=== PATIENT | female | born 1970 | race Caucasian/White ===

== ENCOUNTER 2022-11-19 14:26 | Outpatient (CLI) | payer OTHER, SELFPAY | END 2022-11-19 14:27 | disposition home or self-care (01) | LOC: NFLDREF 14:27 | PROVIDERS: Visit Provider Obstetrics & Gynecology | DX: N93.9 Abnormal uterine and vaginal bleeding, unspecified (principal) | CPT/HCPCS: 80053; J1100; J1885; J2250; J2405; J2704; J3010 ==

== ENCOUNTER 2022-11-20 09:18 | Day surgery (SDC) | payer OTHER, SELFPAY ==
[2022-11-20 10:01] LABS: Basophils Absolute Auto 0.04 K/uL (0.00-0.30); Basophils Percent Auto 0.7 % (0.0-3.0); Eosinophils Absolute Auto 0.17 K/uL (0.00-0.50); Eosinophils Percent Auto 3.1 % (0.0-7.0); Hematocrit 38.2 % (33.0-51.0); Hemoglobin* 12.9 gm/dL (12.0-16.0); Lymphocytes Absolute Auto 1.46 K/uL (0.90-2.90); Mean Corpuscular HGB Conc 34 gm/dL (32-36); Mean Corpuscular Hemoglobin 32 pg (26-34); Mean Corpuscular Volume 95 fL (80-100); Neutrophils Absolute Auto 3.19 K/uL (1.7-7.0); Neutrophils Percent Auto 59.2 % (42.0-72.0); Platelet Count* 410 K/uL (140-440); RDW Coefficient of Variation % 12.6 % (11.5-15.5); Red Blood Count 4.04 m/uL (4.00-5.20)
[2022-11-20 10:02] LABS: Slide Review Reflex No
[2022-11-20] MEDS: LACTATED RINGERS 1000 ML 1,000 ML 100 ML IV (10:15)
[2022-11-20] MEDS: SODIUM CHLORIDE 0.9 % (FLUSH) 10 ML SYRINGE IVF (10:15)
[2022-11-20 10:16] VITALS: BP 110/58; PULSE 64; RESP 16; TEMP 36.5; O2SAT 100; BMI 25.0
--- NOTE | 2022-11-20 11:11 | W.ANESCHARGE ---
Anesthesia Charges Start Date/Time Anesthesia Start Date: 11/20/22 Anesthesia Start Time: 12:06 Stop Date/Time Anesthesia Stop Date: 11/20/22 Anesthesia Stop Time: 12:58
[2022-11-20] MEDS: BUPIVACAINE 0.25% 30 ML 20 ML INJECTION (12:42)
[2022-11-20] MEDS: LIDOCAINE 1% MDV 20 ML INJECTION (12:42)
[2022-11-20 12:58] VITALS: BP 127/72; PULSE 62; RESP 16; TEMP 36.2; O2SAT 99
--- NOTE | 2022-11-20 13:01 | W.PM.GYNPROC ---
Procedure Note Time Seen by Provider: 13:01 Date of procedure: 11/20/22 Pre-op diagnosis: Heavy and prolonged menstrual bleeding, history bicornuate uterus Post-op diagnosis: same Procedure: Hysteroscopy, D&C Anesthesia: MAC and local (Paracervical block) Complications: None Surgeon: Taryn Lehman MD Estimated blood loss (mL): 10 Pathology: specimen obtained, sent to pathology Condition: stable Disposition: PACU Findings: Bicornuate uterus: Septum extended 3 cm between the uterine horns. Sound length 11 cm on each side, 8 cm in the midline. Tubal ostia difficult to visualize bilaterally. Moderately thick endometrial tissue in both cornua. Procedure Description: After obtaining informed consent, the patient was taken to the operating room where she received monitored anesthesia care. She was prepared and draped in the normal sterile fashion, in the dorsal lithotomy position. An open-sided bivalve speculum was introduced into the vagina and the cervix visualized. The anterior lip of the cervix was grasped with a single-tooth tenaculum for traction. A paracervical block was then administered using a total of 20 mL of a 50/50 mixture of 0.25% Marcaine and 1% lidocaine plain. The uterus was gently sounded. Sound length was initially thought to be 8 cm. The cervix was gently dilated to a #6 Hegar dilator. A hysteroscope was then advanced under direct visualization through the cervix into the uterine cavity. Sterile normal saline was used as distending medium. The uterine cavity was carefully inspected with the findings noted above. Pictures were taken for documentation purposes. The TruClear morcellator was inserted through the operating channel in the hysteroscope. The morcellator was used to remove thickened endometrial lining on both halves of the uterus. The septum between was quite firm. The hysteroscope was then removed. The endometrial lining was then sharply curetted, making sure to obtain samples and tissue from both uterine horns. A gritty feel was felt on both sides. Initially, Mirena IUD insertion was planned as well, but due to the significant uterine septum and bicornuate shape of the uterus, this was not done, as the device would not have deployed properly. The tenaculum was removed. There was little bleeding from the tenaculum site, which was controlled with direct pressure sponge stick. All instruments were then removed. The patient tolerated the procedure well. Sponge, lap, needle, and instrument counts reported as correct x2. The patient was taken to the recovery room awake in a stable condition.
--- NOTE | 2022-11-20 13:14 | W.ANESCHARGE ---
Anesthesia Charges Start Date/Time Anesthesia Start Date: 11/20/22 Anesthesia Start Time: 12:06 Stop Date/Time Anesthesia Stop Date: 11/20/22 Anesthesia Stop Time: 12:58
[2022-11-20 13:15] VITALS: BP 125/84; PULSE 62; RESP 16; O2SAT 99
[2022-11-20 13:30] VITALS: BP 122/74; PULSE 62; RESP 16; O2SAT 99
[2022-11-20 13:45] VITALS: BP 125/74; PULSE 65; RESP 16; O2SAT 99
== END 2022-11-20 14:19 | disposition home or self-care (01) ==
PROVIDERS: Obstetrics & Gynecology; Visit Provider Obstetrics & Gynecology
PROC: 0UDB8ZZ Extraction of Endometrium, Via Natural or Artificial Opening Endoscopic (ICD-10-PCS; CPT 58558; principal; 2022-11-20 10:45)
DX: N92.0 Excessive and frequent menstruation with regular cycle (principal); Q51.3 Bicornate uterus
CPT/HCPCS: 58558; 00952; 36415; 85025; 88305; J0665; J7120

== ENCOUNTER 2023-03-06 08:03 | Day surgery (SDC) | payer OTHER, SELFPAY ==
[2023-03-06] VITALS (21 sets, daily range): BP systolic 94–133; BP diastolic 42–74; PULSE 45–83; RESP 15–20; TEMP 21–37.1; O2SAT 96–100; BMI 26.3
[2023-03-06 08:39] LABS: Hemoglobin* 15.2 gm/dL (12.0-16.0)
[2023-03-06 08:42] LABS: Ur HCG Qualitative* Negative (Negative)
[2023-03-06 08:54] LABS: Creatinine* 0.8 mg/dL (0.5-1.5); Est. Creatinine Clearance* 77.88; Estimated Glomerular Filt Rate 89 ml/min
[2023-03-06] MEDS: LACTATED RINGERS 1000 ML 1,000 ML 100 ML IV ×3 (09:00→13:16)
--- NOTE | 2023-03-06 09:15 | W.PM.H&PU ---
History & Physical Update History & Physical Update H&P Reviewed and patient assessed: No changes noted
--- NOTE | 2023-03-06 09:16 | P.GYNPRC_ITS ---
<Statement entered by Kim Diego MD - 07/08/23 08:00> Another document completed, this one should be deleted. Procedure Note Date of procedure: 03/06/23
--- NOTE | 2023-03-06 09:16 | W.PM.GYNPROC ---
Procedure Note Date of procedure: 03/06/23
[2023-03-06] MEDS: CEFAZOLIN 2 GM INJ IVP (11:08)
--- NOTE | 2023-03-06 11:35 | W.PM.NB ---
Nerve Block Nerve Block Time Seen by Provider: 10:42 Date Seen: 03/06/23 Type of block requested by surgeon for post-operative analgesia: TAP Side: bilateral Time out performed: Yes Verification of patient name: Yes Verification of date of : Yes Site marking: site marked Name of person performing procedure: Georgette Trevino Continuous monitoring Was continuous monitoring of O2 sat, B/P, cardiac technologist, recorded every 15 minutes?: Yes Procedure Checklist: sterile prep, needles and gloves Ultrasound guided. Images saved: Yes Medications given in 5ml increments after negative aspiration: Marcaine %: 0.25 mL: 30 Needle gauge: 21 and Exparel mL: 10 Patient tolerated procedure well: Yes Block Charges Block Charge (with Pro Fee): TAP Bilateral Use of Ultrasound Machine for Block: Yes- US Guidance/pain block
--- NOTE | 2023-03-06 14:29 | W.ANESCHARGE ---
Anesthesia Charges Start Date/Time Anesthesia Start Date: 03/06/23 Anesthesia Start Time: 10:33 Stop Date/Time Anesthesia Stop Date: 03/06/23 Anesthesia Stop Time: 14:28
--- NOTE | 2023-03-06 14:30 | W.PM.GYNPROC ---
Procedure Note Date of procedure: 03/06/23 Pre-op diagnosis: Abnormal uterine bleeding, bicornuate uterus Post-op diagnosis: same Procedure: Total laparoscopic hysterectomy, bilateral fimbriectomy, cystoscopy. Excision of anterior abdominal wall sebaceous cyst. Anesthesia: GETA Complications: None Surgeon: Katt Diego MD Dielectric Embossing Machine Operator: Angela Salas Estimated blood loss (mL): 50 IV fluids (mL): 2,000 Urine Output (mL): 200 Pathology: specimen obtained, sent to pathology (Uterus and bilteral fimbriae.) Condition: stable Disposition: floor Findings: Anterior abdominal wall on the left lower abdominal quadrant a 5mm in size skin lesion that looked like an open comedo. Normal external genitalia, bimanual exam, large uterus of about 14cm, retroverted, movable. Speculum exam: Cervix w/o abnormal discharge or gross lesions. Intra abdominal:No gross lesions, grossly normal liver, gallbladder, stomach. Fine omental adhesion to the anterior peritoneal wall close to the sigmoid colon. Uterus with a heart shape fundus, of about 14cm. Evidence of surgical sterilization. Right simple ovarian cyst of about 2cm, otherwise grossly normal ovary. Grossly normal bilateral fimbriae, small atrophic left ovary. Cystoscopy: Intact bladder mucosa, no evidence of foreign body or lesions. Normal bilateral ureteral jets. Procedure Description: DESCRIPTION OF PROCEDURE: After obtaining informed consent, the patient was taken to the operating room where general anesthesia was obtained without difficulty. At preop area patient expressed desire for to me evaluate and drain a sebaceous cyst that she has recurrently drained in the past, this was located at the left lower anterior abdominal wall skin, about 5mm in size and looked like an open comedo. This did not look infected, no surrounding erythema. I discussed with patient that I could evaluate for drainage once she was under anesthesia at the OR. Prior to prepping the skin this area was evaluated and I was able to drain manually, sebaceous discharge noted. This are was further cleansed with Betadine and utilizing a small hemostat the capsule of the cyst was almost completely removed. No bleeding encountered I wanted to re evaluate are at the end of surgical intervention. She was prepared and draped in the normal sterile fashion in the low dorsal lithotomy position. A Santos catheter was inserted into the bladder and left to gravity drainage. A medium Graves open-sided speculum was introduced into the vagina. The cervix was visualized and grasped along its anterior lip with a single-tooth tenaculum. Cervical dilation performed with Hegar dilators up to about 6mm. The uterus was gently sounded. Sound length was found to be 8 cm. I then placed a Medium VCare uterine manipulator. The tenaculum and speculum were removed. The green VCare cup was digitally pressed up against the cervix and then cinched in place with the blue accessory cup. I then changed gloves and my attention was turned to the abdomen. The inferior aspect of the umbilical fold was injected with 0.25% Marcaine plain. A 5 mm vertical incision was then made within the umbilical fold using a scalpel. A direct entry technique was used, a 5 mm laparoscopic port with CO2 gas set at 5mmHg was introduced under direct visualization. The trocar was removed leaving the sleeve in place. The CO2 gas flow was turned to high flow to achieve pneumoperitoneum. The 5 mm laparoscope was used then to carefully inspect the abdomen and pelvis with findings noted above. Pictures were taken for documentation purposes. The patient was placed in Trendelenburg positioning. Two additional 5mm ports were placed in the right and left lower quadrants under direct visualization after first anesthetizing the skin and fascia with 0.25% Marcaine plain. Once the ports were in place, the VCare manipulator was used to elevate the uterus. The ureters were identified bilaterally along their courses in the pelvic sidewalls. The VCare cup was visualized and palpated with a blunt grasper. The left round ligament was sealed in a wide swath and transected with the Thunderbeat, excellent hemostasis was obtained. The left utero ovarian ligament was also grasped, coagulated and cut utilizing the Thunderbeat device. The broad ligament was then opened using the Thunderbeat anteriorly and posteriorly along the cervix from the left within the confines of the VCare cup. Pressure was maintained on the uterine manipulator the whole time. The left uterine vessels were sealed in a wide swath and transected with the Thunderbeat, then the tissues over the VCare cup edge on the left side were thinned using the Thunderbeat to the midline posteriorly and anteriorly so that the fascial layer could be identified. The right round ligament was then sealed in a wide swath and transected with the Thunderbeat, excellent hemostasis was obtained. At this time the uterus was more floppy and difficult to manipulate with uterine manipulator alone. Decision was made to place a port at the level of the umbilicus. An additional 5mm port was placed on the abdomen at the level of the umbilicus to the left of umbilicus, about 3-4 cm lateral from umbilicus under direct visualization. A laparoscopic tenaculum was introduced under direct visualization and utilized to grasp the uterine fundus to aid in uterine manipulation. The right broad ligament was then opened using the Thunderbeat anteriorly and posteriorly along the cervix from the right within the confines of the VCare cup. Pressure was maintained on the uterine manipulator the whole time. The right uterine vessels were sealed in a wide swath and transected with the Thunderbeat, then the tissues over the VCare cup edge on the right side were thinned using the Thunderbeat to the midline posteriorly and anteriorly so that the fascial layer could be identified. Once an adequate dissection was made circumferentially, the Thunderbeat device was utilized to dissect to identify the green Vcare cup, then a laparoscopic monopolar paddle was introduced under direct visualization and tissue was dissected circumferentially around the cervix within the groove of the VCare cup. Once the dissection was completed circumferentially, I turned my attention to the vagina. I was able to get the cervix and part of the uterine body through the vagina, I then removed the uterine manipulator. A weighted speculum was placed, a large [place] retractor was utilized to protect the anterior vaginal wall. Utilizing tenaculum and [place] forceps the cervix, uterine body were grasped and utilizing a scalpel and Peterson scissors the uterus was sequentially cut from the core until I was able to move and grasp the right uterine fundus and the uterus was then removed vaginally. Uterine weight: 339g. A glove with one lap was then introduced vaginally for maintenance of pneumoperitoneum. I then turned my attention again to the abdomen, after changing gloves. The left lower abdominal quadrant incision was then extended to place an 11mm port. The vaginal cuff was reapproximated in a running fashion with a V-Loc suture starting from the right side and running across to the left and then back to the midline where the suture was cut flush with the tissues. The pelvis was copiously irrigated and hemostasis visualized. Preparations were then made for cystoscopy. Methylene blue was administered intravenously along with the IV fluids. Then the right fimbriae was identified, grasped and clamped, coagulated and cut utilizing Thunderbeat device. Same procedure performed on the left side. Bilateral fimbrial ends sent to pathology with uterus. The Santos catheter was removed. The patient was flattened out. Cystoscopy was performed using sterile normal saline as distending medium. The bladder was carefully inspected and noted to be free of filling defects or suture material. Furosemide 20mg IV given. Both ureteral orifices were easily visualized and methylene blue tinged urine jets were noted from both sides. The cystoscope was then removed. The Santos catheter was replaced into the bladder. Attention was once again turned to the abdomen. The abdomen and pelvis were again irrigated and inspected for hemostasis. Ramona placed to vaginal cuff for additional hemostasis. Attention was then placed to the 11mm port site and under direct visualization using a Ken-Glory system the fascia was closed. All instruments were then removed under direct visualization. Pneumoperitoneum was allowed to escape. The left lower abdominal quadrant incision were the previously described open comedo was drained was re inspected and pieces of remaining capsule from cyst were removed. The subcutaneous tissue at this incision was re approximated with Vicryl 3-0. The skin at all port sites was closed in a subcuticular fashion with 4-0 Monocryl. LiquiBand was then placed over the incisions. The patient tolerated the procedure well. Sponge, lap, needle, and instrument counts were reported as correct x2. The patient was taken to the recovery room awake and in stable condition. She did receive 2 g of IV Ancef preoperatively. PATHOLOGY SPECIMEN(S): Uterus and bilateral fimbriae. A debrief was completed at the end of procedure to clarify: name of procedure, pathology specimens, EBL and to clarify questions or concerns, there were none.
--- NOTE | 2023-03-06 16:14 | PC.NURSE ---
Heart rate ranging from 43-49 bpm after surgery. Blood pressure and other vitals within normal limits. Stephen De Leon SOLVENT PROCESS EXTRACTOR OPERATOR and Georgette Shay SOLVENT PROCESS EXTRACTOR OPERATOR notified, no further orders.
[2023-03-06] MEDS: KETOROLAC 30 MG/ML inj IVP (20:13)
[2023-03-06] MEDS: ACETAMINOPHEN 500 MG TABLET 1000 MG PO (23:30)
[2023-03-07] MEDS: KETOROLAC 30 MG/ML inj IVP (02:19)
[2023-03-07 02:26] VITALS: BP 105/56; PULSE 70; TEMP 37; O2SAT 95
[2023-03-07 05:32] VITALS: BP 102/63; PULSE 70; RESP 17; TEMP 36.8; O2SAT 95
[2023-03-07] MEDS: ACETAMINOPHEN 500 MG TABLET 1000 MG PO ×2 (05:35→11:22)
[2023-03-07 07:34] LABS: Hemoglobin* 13.8 gm/dL (12.0-16.0)
[2023-03-07] MEDS: IBUPROFEN 600 MG TABLET PO ×2 (07:54→14:07)
[2023-03-07 07:55] VITALS: BP 104/63; PULSE 67; RESP 16; TEMP 36.7
[2023-03-07] MEDS: DOCUSATE SODIUM 100 MG CAPSULE PO (07:56)
[2023-03-07 07:57] LABS: Creatinine* 0.8 mg/dL (0.5-1.5); Est. Creatinine Clearance* 77.88; Estimated Glomerular Filt Rate 89 ml/min
--- NOTE | 2023-03-07 08:47 | PM.GYNDS1 ---
DS: Providers Provider Time Seen by Provider: 08:15 Date Seen: 03/07/23 Date of admission: 03/06/2023 Primary care physician: Not a Local Provider Admitting Clinician: Kim Diego MD Attending Physician on discharge: Taryn Lehman MD Date of Discharge: 03/07/23 DS: Diagnosis Discharge Diagnosis (1) S/P hysterectomy: Status: Acute [facility]-Discharge Summary Hospital Course Hospital Course Narrative: Patient is a 52 year old admitted on 03/06/23 for total laparoscopic hysterectomy, bilateral fimbriectomy, cystoscopy. Excision of anterior abdominal wall sebaceous cyst. Indication for surgery: abnormal uterine bleeding and bicormuate uterus. Intraoperative findings were notable for Anterior abdominal wall on the left lower abdominal quadrant a 5mm in size skin lesion that looked like an open comedo. Normal external genitalia, bimanual exam, large uterus of about 14cm, retroverted, movable. Speculum exam: Cervix w/o abnormal discharge or gross lesions. Intra abdominal:No gross lesions, grossly normal liver, gallbladder, stomach. Fine omental adhesion to the anterior peritoneal wall close to the sigmoid colon. Uterus with a heart shape fundus, of about 14cm. Evidence of surgical sterilization. Right simple ovarian cyst of about 2cm, otherwise grossly normal ovary. Grossly normal bilateral fimbriae, small atrophic left ovary. Cystoscopy: Intact bladder mucosa, no evidence of foreign body or lesions. Normal bilateral ureteral jets.. She had an uncomplicated surgery. Postoperative course has been uneventful. Vitals have been stable. She has remained afebrile. Today, on postoperative day 1, she reports the pain is well controlled. She has been able to ambulate Without difficulty. She is tolerating regular diet. She is passing flatus. Santos catheter has been removed, and she is voiding without difficulty. Time Spent with Patient Time attestation: Total time spent providing and/or coordinating discharge services: Time spent: Less than 30 minutes [facility] - Exam Physical Exam: Vital signs: Temp Pulse Resp BP Pulse Ox O2 Del Method 98.1 F 67 16 104/63 95 Room Air 03/07/23 07:55 03/07/23 07:55 03/07/23 07:55 03/07/23 07:55 03/07/23 05:32 03/07/23 07:55 Constitutional: Constitutional: no acute distress Routine HEENT Exam: Head: Present normal inspection Routine Neck Exam: NECK: Present supple Routine Respiratory Exam: Respiratory: Present CTA bilaterally; Absent crackles, rhonchi or wheezes Routine Cardiovascular Exam: Cardiovascular: Present RRR; Absent murmur Routine Abdominal Exam: Abdominal: Present normal bowel sounds and soft; Absent distended or tenderness Comments: Laparoscopic incisions clean, dry, intact x4. Routine Extremities Exam: Extremities: Present normal inspection; Absent calf tenderness or pedal edema Routine Psychiatric Exam: Psychiatric: Present normal affect [facility] - DS: Data Data Completed and Pending Labs on day of discharge: Labs from last 24 hours 03/07/23 03/06/23 07:20 08:35 Hgb 13.8 Creatinine 0.8 0.8 Estimated Creat Clear 77.88 77.88 Estimated GFR 89 89 Blood Type O Negative Antibody Screen NEGATIVE Procedures Procedures: Procedures Operation Date: 03/06/23 09:50 Actual Procedure Side Surgeon p Total Laparoscopic Hysterectomy, Bilateral Fimbriectomy, Excision of Abdominal Wall Sebacious Cyst, Cystoscopy Kim Diego MD Discharge Plan Discharge Disposition: Home, Self-Care Discharging Surgeon: Taryn Lehman Follow-Up Appointment: 2 weeks in [facility] (already scheduled) Prescriptions: New acetaminophen 325 mg Tablet 1,000 mg PO Q6H PRN (Reason: minor pain) Qty: 30 0RF ibuprofen 600 mg Tablet 600 mg PO Q6H Qty: 30 0RF oxycodone 5 mg Tablet 5 mg PO Q4H PRN (Reason: Moderate Pain) Qty: 15 0RF docusate sodium 100 mg Capsule 100 mg PO DAILY PRN (Reason: Constipation) Qty: 30 0RF Discontinued norethindrone acetate 5 mg tablet 5 mg PO QDAY Qty: 30 4RF Activity Level: Activity as Tolerated Discharge Diet: Regular Patient Instructions: Surgical Site Infections (DC) Additional Instructions: Discharge instructions were reviewed with the patient including signs and symptoms of infection and medications to use for pain.? Instructions given to alternate acetaminophen with ibuprofen, each every 6 hours, such that pain medication can be taken every 3 hours. Oxycodone to be used in addition as needed. ? No lifting greater than 20 pounds for 6 weeks. Nothing per vagina for 6 weeks. ? Follow up with your surgeon in 2 weeks for incision check and 6 weeks for a postoperative visit or sooner as needed. Forms: Work/School Release Follow-up: Provider,Not a Local [Primary Care Provider] - Discharge Orders: Discharge Order (Routine); Ordered 03/07/23 Ordered By: Taryn Lehman
[2023-03-07 14:05] VITALS: BP 104/64; PULSE 73; RESP 16; TEMP 36.7
== END 2023-03-07 14:20 | disposition home or self-care (01) ==
LOC: OR 08:04 → MEDSURG 08:04 → OB 08:27
PROVIDERS: Visit Provider Obstetrics & Gynecology
PROC: 0UT94ZZ Resection of Uterus, Percutaneous Endoscopic Approach (ICD-10-PCS; CPT 58573; principal; 2023-03-06 09:30)
DX: N93.8 Other specified abnormal uterine and vaginal bleeding (principal); Q51.3 Bicornate uterus; L72.3 Sebaceous cyst; G89.18 Other acute postprocedural pain
CPT/HCPCS: 58573; 11400; 00840; 36415; 64488; 76942; 81025; 82565; 85018; 86850; 86900; 86901; 88307; 88342; A9270; C9290; J0665; J0690; J1100; J1170; J1885; J1940; J2250; J2371; J2405; J2704; J3010; J3490; J7120

== ENCOUNTER 2024-01-05 21:23 | Emergency (ER) | payer OTHER, SELFPAY ==
[2024-01-05 21:38] VITALS: BP 132/67; PULSE 79; RESP 18; TEMP 36.9; O2SAT 99; BMI 25.0
--- NOTE | 2024-01-05 21:40 | CRLHL7_ITS ---
For Patients: As a result of the Century Cures Act, medical imaging exams and procedure reports are released immediately into your electronic medical record. You may view this report before your referring provider. If you have questions, please contact your health care provider. INDICATION: Missed step, fall on foot TECHNIQUE: Foot radiograph 3 views right COMPARISON: None FINDINGS: Bone: There is a comminuted, mildly displaced intra-articular fracture present at the base of the 5th metatarsal. Accessory cuboid and navicular bones are noted. A small plantar calcaneal spur is noted. Joint: The visualized hindfoot, midfoot, and forefoot joints are unremarkable in appearance. No significant ankle effusion is seen. Soft tissue: Unremarkable. No radiopaque foreign bodies are seen. IMPRESSION: 1. There is a comminuted, mildly displaced intra-articular fracture present at the base of the 5th metatarsal. Dictated by Jose Rodriguez MD @ 01/05/2024 10:52:14 PM Dictated by: Jose Rodriguez MD @ 01/05/2024 22:52:17 (Electronically Signed)
--- NOTE | 2024-01-05 23:10 | ED_ITS ---
HPI - Extremity Injury (Lower) General Chief Complaint: Extremity Pain/Injury, Lower Stated Complaint: R foot injury Time Seen by Provider: 01/05/24 21:50 History of Present Illness HPI Narrative: This 53-year-old female comes in with an injury to her right foot. She missed the last step and felt a pop as she misstepped on the landing of the steps. She was able to ambulate some on this foot. She has swelling on the lateral aspect of the right foot. She did not fall or have any other injury. Related Data Home Medications ?Medication ?Instructions ?Recorded ?Confirmed No Known Home Medications 01/05/24 01/05/24 Allergies Allergy/AdvReac Type Severity Reaction Status Date / Time No Known Drug Allergies Allergy Verified 01/05/24 21:40 Review of Systems Status of ROS: Reports: 10 or more systems reviewed and unremarkable except as noted in History and below Narrative: Constitutional: No fevers, no weight gain or loss. Eyes: No discharge. No vision changes. HENT: No congestion, no sore throat, no ear pain. Cardiovascular: No chest pain, no palpitations. Respiratory: No shortness of breath, no wheezes, no cough. Gastrointestinal: No abdominal pain, no vomiting, no diarrhea. Genitourinary: No dysuria, no hematuria. Musculoskeletal: Right foot injury as described above. Skin: No rashes, no pruritis. Neurological: No dizziness, weakness, sensory change, speech change. Endo/Heme/Allergies: No bruising or bleeding. No polydipsia. Pysch: no suicidality, no anxiety, no insomnia. All other systems reviewed and are negative. [facility] Medical History (Updated 01/05/24 @ 23:14 by Josue Anguiano MD) Varicose vein of leg ?I83.90 - Asymptomatic varicose veins of unspecified lower extremity (ICD-10) Miscarriage ?O03.9 - Complete or unspecified spontaneous without complication (ICD-10) Surgical History (Updated 03/07/23 @ 08:49 by Taryn Lehman MD) Hx of section ?Z98.891 - History of uterine scar from previous surgery (ICD-10) Social History What is your current living situation?: I presently have a place to live Problems where you live: no known problems In the past 12 months, utilities in danger of being shut off: no In past 12 months, lack of transportation kept you from medical appts, meetings, work, or getting things needed for daily living: no In the past 12 mos, have been you worried that your food would run out before you had money to buy more?: never true In the past 12 mos, the food you bought just didn't last and you didn't have money to buy more?: never true Smoking Status: Current every day smoker What tobacco products do you use: cigarettes Years smoked: 20 Do you use any of these nicotine containing products: None How often do you have a drink containing alcohol: never AUDIT-C Alcohol total score: 0 Non-prescribed substance use: denies use Caffeine: Yes (pepsi) How often does anyone, including family, friends and others, physically hurt you : never How often does anyone, including family, friends and others, insult or talk down to you: never How often does anyone, including family, friends and others, threaten you with harm: never How often does anyone, including family, friends and others, scream or curse at you: never Little interest or pleasure in doing things: not at all Feeling down, depressed, or hopeless: not at all service: No Exam Narrative: Exam Narrative: Constitutional: Well-developed, well-nourished, no acute distress. HEENT: Normocephalic, atraumatic. Neck: Normal range of motion. Nontender. Supple. Heart: Intact distal pulses. Lungs: No chest discomfort. No wheezes, rhonchi, or rales. Abdomen: Nontender. Back: Normal range of motion. Extremities: The right foot has swelling and ecchymosis around the base of the 5th metatarsal. Skin: Intact. No rash. Warm. No erythema or pallor. Neurologic: No altered sensation. No weakness. Alert and oriented. Psychiatric: No suicidality. No anxiety or depression. No insomnia. Nursing notes and vitals signs are reviewed. Const: Vital Signs, click to edit/add: Vital Signs - 24 hr 01/05/24 21:38 Temperature 98.5 F Pulse Rate [Right Pulse Oximeter] 79 Respiratory Rate 18 Blood Pressure [Le ft Upper Arm] 132/67 Pulse Oximetry 99 Oxygen Delivery Me thod Room Air Course Vital Signs Vital signs: Initial Vital Signs Temperature 98.5 F 01/05/24 21:38 Temperature Source Temporal Artery Scan 01/05/24 21:38 Pulse Rate 79 01/05/24 21:38 Respiratory Rate 18 01/05/24 21:38 Blood Pressure 132/67 01/05/24 21:38 Blood Pressure Mean 88 01/05/24 21:38 Blood Pressure Position Sitting 01/05/24 21:38 Pulse Oximetry 99 01/05/24 21:38 Oxygen Delivery Method Room Air 01/05/24 21:38 Vital Signs Temperature 98.5 F 01/05/24 21:38 Pulse Rate 79 01/05/24 21:38 Respiratory Rate 18 01/05/24 21:38 Blood Pressure 132/67 01/05/24 21:38 Pulse Oximetry 99 01/05/24 21:38 Oxygen Delivery Method Room Air 01/05/24 21:38 Temperature 98.5 F 01/05/24 21:38 Pulse Rate 79 01/05/24 21:38 Respiratory Rate 18 01/05/24 21:38 Blood Pressure 132/67 01/05/24 21:38 Pulse Oximetry 99 01/05/24 21:38 Oxygen Delivery Method Room Air 01/05/24 21:38 MDM - Extremity Injury (Lower) MDM Narrative Medical decision making narrative: This patient has an injury to her right foot and x-ray images do show a fracture of the base of the 5th metatarsal with extension into the joint. This seems more likely to represent a Toro fracture. The patient was placed in a posterior splint using Ortho Glass material and fitted for crutches. She is instructed to follow-up with orthopedic clinic for ongoing management. Imaging Data XR R foot: Radiologist's impression: There is a comminuted, mildly displaced intra-articular fracture present at the base of the 5th metatarsal. Discharge Plan Discharge Clinical Impression: Toro fracture Patient Disposition: Home w/ Parent or Adult Condition: Unchanged Additional Instructions: Wear splint and use crutches for ambulating. Follow-up with orthopedic clinic. Call [phone] for appointment. Prescriptions: No Action No Known Home Medications Follow Up/Referrals: Troy Castillo MD [Primary Care Provider] - [facility]one [facility]
[2024-01-05 23:36] VITALS: BP 125/68; PULSE 74; RESP 18; TEMP 36.9; O2SAT 99
[2024-01-05 23:38] VITALS: BP 125/68; PULSE 74; RESP 18; TEMP 36.9
== END 2024-01-05 23:38 | disposition home or self-care (01) ==
LOC: ED 23:19
PROVIDERS: Emergency Provider Emergency Medicine Emergency Medical Services; PCP Family Medicine
DX: S92.501A Displaced unspecified fracture of right lesser toe(s), initial encounter for closed fracture (principal); W10.9XXA Fall (on) (from) unspecified stairs and steps, initial encounter
CPT/HCPCS: 73630; 99283; 99284